=== PATIENT | male | born 1970 | race Caucasian/White ===

== ENCOUNTER 2025-01-26 06:19 | Day surgery (SDC) | payer OTHER, SELFPAY ==
[2025-01-26 07:55] LABS: Glucose - Point of Care 191 mg/dl (70-99)
== END 2025-01-26 09:00 | disposition home or self-care (01) ==
LOC: GI 06:19
PROVIDERS: ATTENDING PHYSICIAN Internal Medicine Gastroenterology
DX: K22.89 Other specified disease of esophagus (principal); K31.89 Other diseases of stomach and duodenum; R12 Heartburn
CPT/HCPCS: 43239; 88305; 82962; 88342